=== PATIENT | female | born 1980 | race Caucasian/White ===

== ENCOUNTER 2023-03-09 09:34 | Emergency (ER) | payer BC, SELFPAY ==
[2023-03-09 09:49] VITALS: BP 110/66
--- NOTE | 2023-03-09 10:50 | ED.GENMED ---
History of Present Illness
General
Chief Complaint: Musculo-Skeletal Complaint
Source: patient
Time Seen by Provider: 03/09/23 10:03
Travel History
Have you had any contact with someone who has COVID-19?: No
Do you have any symptoms of coronavirus? Fever > 100 degrees, chills, cough, shortness of breath, sore throat, loss of taste or smell, muscle aches, or headache?: No
History of Present Illness
History of Present Illness:
43-year-old female with past medical history of migraines presenting the emergency department for evaluation of right-sided neck and shoulder pain has been ongoing for the last few days which she believes could have been exacerbated after she was
playing an arcade game with her son and throwing a baseball. She states that she does not remember any specific instance where she injured her right shoulder but about 3 hours after started noticing the pain which is now progressed into sharp
shooting pain from her neck down her right arm with paresthesia to the index and middle finger. Denies any history of similar. No direct trauma to the shoulder. No fevers or infectious symptoms. Patient has been taking Advil with minimal relief
prompting her to come to the emergency department today. Patient also notes she went to her chiropractor yesterday but did not receive any relief with this either.
Past History
Past History
ED Past Medical History: Other (Migraines)
ED Past Surgical History: None
Social History
Tobacco: Non-smoker
Alcohol: Occasional
Drug: None
Personal:
Living: with family
Employment: Employed
Review of Systems
Review of Systems
All Other Systems: ROS reviewed and negative except as documented in HPI and ROS
Phy Exam
Physical Exam
Physical Exam:
GENERAL: Alert , appears uncomfortable
EYE: conjunctiva clear
Head: Normocephalic atraumatic
NECK: Supple, no midline tenderness but patient does have reproducible paracervical tenderness extending down towards the scapula and trapezius.
ENT: mmm.
LUNGS: no acute respiratory distress
NEUROLOGICAL: Alert and oriented
SKIN: Warm and dry, skin intact.
MUSCULOSKELETAL: well perfused. Right shoulder: Decreased range of motion secondary to pain. Tenderness over the posterior humeral head as well as the anterior humeral head. No overlying skin changes. Remainder of extremity is within normal
limits and has normal range of motion. Neurovascularly intact.
PSYCH: Normal and appropriate interaction.
Scores
Heart Failure Risk
Heart Failure Risk Score: Not Applicable
Heart Score for Chest Pain Patients
STEMI patient?: Not applicable
Withdrawal Assessment of Alcohol
Withdrawal Assessment Completed?: Not applicable
Course
Orders/Labs/Results
Orders:
Orders
03/09/23 10:03
CR Shoulder - Right Min 2 View Urgent
Reason For Exam: pain, decreased ROM
03/09/23 10:19
CR Cervical Spine 4 Or 5 Vw Urgent
Comment:
Reason For Exam: shoulder/neck pain
03/09/23 10:58
Diazepam [Valium] 5 mg PO NOW STA
Lidocaine [Lidocaine 4% Patch] 1 patch TOPICAL NOW STA
Vital Signs
Initial and Last Documented VS:
Initial Vital Signs
Temp Pulse Resp BP Pulse Ox
97.4 F 89 18 110/66 98
03/09/23 09:49 03/09/23 09:49 03/09/23 09:49 03/09/23 09:49 03/09/23 09:49
Last Documented Vital Signs
Temp Pulse Resp BP Pulse Ox
97.4 F 89 18 110/66 98
03/09/23 09:49 03/09/23 09:49 03/09/23 09:49 03/09/23 09:49 03/09/23 09:49
MDM/Problems Addressed
Differential Diagnosis Includes:
Cervical radiculopathy, tendinitis, rotator cuff injury, bursitis, no concern for infectious etiology
MDM/Problems Addressed:
43-year-old female present emergency department for evaluation of right shoulder pain and neck pain with radicular symptoms. Pain is reproducible with movement as well as palpation. X-ray of the cervical spine and shoulder ordered. Pain control
with Valium and topical Lidoderm. Anticipate need for outpatient management and orthopedics follow-up.
*Radiology
Radiology exam reviewed: preliminary read by ED provider (Mild degenerative changes of the cervical spine noted. Normal shoulder x-ray)
*Pulse Oximetry
Patient hypoxic: no
*Critical Care Note
Total Time (30-74mins, 75-104mins- exclusive of procedures): Not Applicable
Patient Management
Escalation/DeEscalation of care consider admission/obs:
Patient's x-rays are largely unremarkable. Prescriptions for Valium, Medrol Dosepak and Lidoderm were sent to pharmacy. Continue NSAIDs. Information for orthopedics was provided. Stable for discharge home.
ED Attending Note
-
Portions of this chart may have been created with voice recognition software.� Occasional wrong word or��sound alike� substitutions may have occurred due to the inherent limitations of voice recognition software.
Discharge Plan
Departure
Patient Disposition: Home (Routine Discharge)
Date of Disposition: 03/09/23
Time of Disposition: 10:50
Patient with high blood pressure during this ER visit?: No
Discharge Problem:
Pain in right shoulder, Right cervical radiculopathy
Instructions: Radiculopathy (DC)
Prescriptions:
New
methylprednisolone [Medrol (Luan)] 4 mg tablets,dose pack
4 mg PO DIRECTED Qty: 21 0RF
diazepam [Valium] 5 mg tablet
5 mg PO BID PRN (Reason: muscle spasm) Qty: 8 0RF
lidocaine [Lidoderm] 5 % adhesive patch,medicated
1 patch topical DAILY Qty: 30 0RF
Referrals:
Cassie Arriaga MD [Family Provider] -
Tete Moeller DO [Active] - (Ortho - Call for appointment)
Interventions
Interventions:
*Risk Screen - Suicide Last Done: 03/09/23 10:24
*General Assessment Last Done: 03/09/23 10:24
*Neglect/Abuse Screening Last Done: 03/09/23 10:24
*Nursing Disposition Last Done: 03/09/23 11:14
ED-Musculoskeletal Assessment Last Done: 03/09/23 10:24
Discharge Date and Time
Discharge Date/Time: 03/09/23 11:45
[2023-03-09] MEDS: VALIUM 5 MG PO (11:08)
[2023-03-09] MEDS: LIDOCAINE 4% PATCH 1 PATCH TOPICAL (11:08)
== END 2023-03-09 11:45 | disposition home or self-care (01) ==
LOC: EMR 09:34
PROVIDERS: EMERGENCY PHYSICIAN Emergency Medicine; FAMILY PHYSICIAN Internal Medicine
DX: M47.22 Other spondylosis with radiculopathy, cervical region (principal); M25.511 Pain in right shoulder; G43.909 Migraine, unspecified, not intractable, without status migrainosus; Z88.1 Allergy status to other antibiotic agents
CPT/HCPCS: 99283; 72050; 73030